=== PATIENT | male | born 1945 | race Caucasian/White ===

== ENCOUNTER → 2017-12-24 | Outpatient (CLI) | payer MEDICARE ==
--- NOTE | 2017-12-25 09:14 | XR ---
EXAMINATION TYPE: XR chest 2V DATE OF EXAM: 12/24/2017 COMPARISON: 04/16/2016 TECHNIQUE: PA and lateral views submitted. HISTORY: Presurgical FINDINGS: The lungs are clear and there is no pneumothorax, pleural effusion, or focal pneumonia. Postsurgica l changes are noted. Pleural-based thickening. Rib deformity on the left remote trauma. No overt fail ure or pneumothorax. Heart size stable. Degenerative change of the spine noted. IMPRESSION: 1. No acute process.
== END | disposition home or self-care (01) ==
LOC: RADXRMAIN 16:06
PROVIDERS: ATTEND Internal Medicine
DX: I10 Essential (primary) hypertension (principal)
CPT/HCPCS: 71046

== ENCOUNTER → 2017-12-25 | Outpatient (CLI) | payer MEDICARE ==
[2017-12-25 11:25] LABS: PSA Annual Screen 0.58 ng/mL (0.00-4.00)
[2017-12-25 18:48] LABS: Hemoglobin A1C 5.2 % (4.0-6.0)
== END | disposition home or self-care (01) ==
LOC: LABWHC1 09:40
PROVIDERS: ATTEND Internal Medicine
DX: E78.5 Hyperlipidemia, unspecified (principal); E55.9 Vitamin D deficiency, unspecified; E03.9 Hypothyroidism, unspecified; E29.1 Testicular hypofunction; E11.9 Type 2 diabetes mellitus without complications; R42 Dizziness and giddiness; R39.14 Feeling of incomplete bladder emptying; Z12.5 Encounter for screening for malignant neoplasm of prostate
CPT/HCPCS: 80061; 84402; 82306; 84403; 83036; G0103; 36415; 80053; 81003; 85027; 85610; 85730; 87070

== ENCOUNTER → 2017-12-25 | Outpatient (CLI) | payer MEDICARE ==
[2017-12-25 10:30] LABS: Appearance,Urine Clear (Clear); Bilirubin,Urine Negative (Negative); Blood,Urine Negative (Negative); Color,Urine Yellow; Glucose,Urine (UA) Negative (Negative); Ketones,Urine Negative (Negative); Leukocyte Esterase,Urine Negative (Negative); Nitrite,Urine Negative (Negative); PH, Urine 7.5 (5.0-8.0); Protein,Urine Negative (Negative); Specific Gravity,Urine 1.011 (1.001-1.035); Urobilinogen,Urine <2.0 mg/dL (<2.0)
[2017-12-25 10:39] LABS: HCT 41.2 % (39.0-53.0); HGB 13.1 gm/dL (13.0-17.5); MCH 28.1 pg (25.0-35.0); MCHC 31.7 g/dL (31.0-37.0); MCV 88.5 fL (80.0-100.0); Mean Platelet Volume 7.8; Platelet Count 186 k/uL (150-450); RBC 4.65 m/uL (4.30-5.90); RDW 13.3 % (11.5-15.5); WBC 7.2 k/uL (3.8-10.6)
[2017-12-25 10:48] LABS: INR 1.1 (<1.2); Partial Thromboplastin Time 24.7 sec (22.0-30.0); Prothrombin Time 10.5 sec (9.0-12.0)
[2017-12-25 10:59] LABS: ALT 94 U/L (21-72); AST 71 U/L (17-59); Alkaline Phosphatase 120 U/L (38-126); Anion Gap 9 mmol/L; Blood Urea Nitrogen 19 mg/dL (9-20); Calcium 9.4 mg/dL (8.4-10.2); Carbon Dioxide 31 mmol/L (22-30); Chloride 106 mmol/L (98-107); Glucose 100 mg/dL (74-99); Potassium 4.4 mmol/L (3.5-5.1); Sodium 146 mmol/L (137-145); Total Bilirubin 0.6 mg/dL (0.2-1.3); Total Protein 7.3 g/dL (6.3-8.2)
== END | disposition home or self-care (01) ==
LOC: LABPAT 09:38
PROVIDERS: ATTEND Orthopaedic Surgery
DX: Z01.812 Encounter for preprocedural laboratory examination (principal); Z01.818 Encounter for other preprocedural examination
CPT/HCPCS: 36415; 80053; 81003; 85027; 85610; 85730; 87070

== ENCOUNTER 2018-01-06 06:16 | Inpatient (IN) | payer MEDICARE ==
[2018-01-01 11:13] VITALS: BMI 24.4
[~2018-01-06 06:16] MED LIST: LACTATED RINGERS 1,000 ML IV SCH; MIDAZOLAM 2 MG/2 ML VIAL IV PRN; MORPHINE SULFATE 4 MG/ML SYRINGE IV PRN; ONDANSETRON 4 MG/2 ML VIAL IVP PRN; TRANEXAMIC ACID 1,000 MG in SODIUM CHLORIDE 0.9% 50 ML IVPB ONE; ceFAZolin IN SWFI 2 GM/20 ML SYRINGE IVP ONE
[2018-01-06] MEDS ORDERED: LIDOCAINE 1% 20 ML VIAL (10MG/ML) FOR IV START INTRADERMA ONE (06:56)
[2018-01-06] MEDS ORDERED: DEXAMETHASONE SOD PHOSPHATE 10 MG/ML 1 ML VIAL IV ONE (06:58)
[2018-01-06] MEDS ORDERED: hydrOXYzine PAMOATE 25 MG CAP PO PRN (10:14)
[2018-01-06] MEDS ORDERED: NA PHOS,M-B/NA PHOS,DI-BA 133 ML ENEMA RECTAL PRN (10:14)
[2018-01-06] MEDS ORDERED: TEMAZEPAM 15 MG CAP PO PRN (10:14)
[2018-01-06] MEDS ORDERED: BISACODYL 10 MG SUPP RECTAL PRN (10:14)
[2018-01-06] MEDS ORDERED: MAGNESIUM HYDROXIDE 2,400 MG/10 ML CUP PO PRN (10:14)
[2018-01-06] MEDS ORDERED: ONDANSETRON 4 MG/2 ML VIAL IVP PRN (10:14)
[2018-01-06] MEDS ORDERED: HYDROcodone/APAP 5-325MG 1 EACH TAB PO PRN (10:14)
[2018-01-06] MEDS ORDERED: NALOXONE 0.4 MG/ML 1 ML VIAL IV PRN (10:14)
[2018-01-06] MEDS ORDERED: MORPHINE SULFATE 4 MG/ML SYRINGE IVP PRN ×2 (10:14)
--- NOTE | 2018-01-06 10:37 | XR ---
EXAMINATION TYPE: XR knee limited RT DATE OF EXAM: 01/06/2018 COMPARISON: NONE TECHNIQUE: Two views submitted HISTORY: Post op FINDINGS: There is a prosthetic knee in near anatomic alignment. There is soft tissue edema and emphysema. IMPRESSION: 1. Postoperative change. Appears in near-anatomic alignment
[2018-01-06] MEDS: LACTATED RINGERS 1,000 ML IV SCH ×2 (11:16→16:44)
[2018-01-06] MEDS: HYDROcodone/APAP 5-325MG 1 EACH TAB PO PRN ×2 (14:17→20:25)
[2018-01-06] MEDS: ceFAZolin IN SWFI 2 GM/20 ML SYRINGE IVP SCH ×2 (16:44→23:31)
[2018-01-06] MEDS ORDERED: WARFARIN 5 MG TAB PO ONE (18:00)
[2018-01-06] MEDS: MORPHINE SULFATE 4 MG/ML SYRINGE IVP PRN ×2 (18:34→23:44)
[2018-01-06] MEDS: LISINOPRIL 20 MG TAB PO SCH (20:26)
[2018-01-06] MEDS: FERROUS SULFATE 325 MG TAB PO SCH (20:26)
[2018-01-06] MEDS: SENNOSIDES-DOCUSATE SODIUM 1 EACH TAB PO SCH (20:26)
--- NOTE | 2018-01-06 23:20 | CONS ---
CONSULTATION DATE OF CONSULTATION: 01/06/2018. REASON FOR CONSULTATION: Medical management, requested by Dr. Tejada. CONSULTATION: This is a pleasant 72-year-old patient of Dr. Freddy Stewart. Has undergone a right total knee arthroplasty. Post procedure, patient's pain is rather well controlled. No nausea or vomiting. No chest pain. Sitting up, comfortable. The patient's chronic stable medical conditions include coronary artery disease, hypertension, hyperlipidemia, arthritis in multiple joints. Patient did tolerate his supper. REVIEW OF SYSTEMS: CONSTITUTIONAL: None. HEENT: None. RESPIRATORY: None. CARDIOVASCULAR: None. GASTROINTESTINAL: None. GENITOURINARY: None. MUSCULOSKELETAL: Arthritic pain in many joints. HEMATOLOGIC: None. LYMPHATICS: None. PSYCHIATRY: None. NEUROLOGIC: None. PAST MEDICAL HISTORY: Coronary artery disease, hypertension, hyperlipidemia, osteoarthritis. The patient's ejection fraction is 50% to 55%. PAST SURGICAL HISTORY: Coronary bypass in 2016, arthroscopy of the right knee, back surgery. SOCIAL HISTORY: Patient smoked less than a pack a day for over 32 years, stopped around 2000. Does medical marijuana. Lives by himself. 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 FAMILY HISTORY: Cancer, type unknown. HOME MEDICATIONS: 1. Metoprolol 25 mg p.o. daily. 2. Mobic 50 mg p.o. daily. 3. Magnesium 500 mg p.o. daily. 4. Zestril 20 mg b.i.d. 5. Lasix 20 mg p.o. daily. 6. Iron 325 p.o. daily. 7. Lipitor 80 mg p.o. daily. 8. Aspirin 325 p.o. daily. ALLERGIES: None. PHYSICAL EXAMINATION: Temperature 98, pulse 58, respirations 18, blood pressure 185/84, repeat blood pressure pending. Pulse ox 98% on room air. GENERAL APPEARANCE: Average built, sitting up, comfortable. EYES: Pupils equal. Conjunctivae normal. HEENT: External appearance of ears and nose normal. Oral cavity normal. NECK: JVD not raised. Mass not palpable. Respiratory effort normal. LUNGS: Clear. CARDIOVASCULAR: 1st and 2nd sounds normal. No edema. ABDOMEN: Soft, nontender. Liver and spleen not palpable. LYMPHATIC: No lymph nodes palpable in the neck or axillae. PSYCHIATRY: Alert, oriented x3. Mood and affect normal. NEUROLOGICAL: Pupils equal. Cranial nerves grossly intact. Power and sensation grossly intact. EXTREMITIES: Dressing over the operative site. INVESTIGATIONS: The patient's blood work from 12/25/2017 shows a hemoglobin of 13.1, potassium 4.4, BUN and creatinine normal. ASSESSMENT: 1. Right total knee arthroplasty. 2. Primary osteoarthritis, multiple joints bilateral. 3. Essential hypertension. 4. Hyperlipidemia. 5. Coronary artery disease with bypass 3 years ago. PLAN: Home medications are resumed. Will put the patient on at least 81 mg because of cardiac history. DVT prophylaxis per Dr. Tejada. Care was discussed with the patient. Questions were answered. Care was discussed the patient. Thank you, Dr. Tejada. MMLISETTEL / YOLANDAN: [id number] /
--- NOTE | 2018-01-06 23:35 | CONS ---
CONSULTATION DATE OF SERVICE: 01/06/2018 REASON FOR CONSULTATION: Medical management requested by Dr. Stewart. CONSULTATION: This is a pleasant 72-year-old patient of Dr. Stewart. The consult was requested by Dr. Tejada. The patient has undergone a MMODL / IJN: [id number] /
[2018-01-07] MEDS: MORPHINE SULFATE 4 MG/ML SYRINGE IVP PRN ×2 (03:38→08:48)
[2018-01-07] MEDS: HYDROcodone/APAP 5-325MG 1 EACH TAB PO PRN (05:39)
[2018-01-07] MEDS: LACTATED RINGERS 1,000 ML IV SCH ×2 (06:18→13:34)
[2018-01-07 07:12] LABS: Basophils % (A) 0 %; Eosinophils % (A) 0 %; HCT 31.3 % (39.0-53.0); HGB 10.2 gm/dL (13.0-17.5); INR 1.6 (<1.2); Lymphocytes % (A) 8 %; MCH 27.9 pg (25.0-35.0); MCHC 32.5 g/dL (31.0-37.0); MCV 85.9 fL (80.0-100.0); Mean Platelet Volume 8.3; Monocytes # (A) 0.7 k/uL (0-1.0); Monocytes % (A) 5 %; Neutrophils # (A) 11.2 k/uL (1.3-7.7); Neutrophils % (A) 85 %; Platelet Count 184 k/uL (150-450); Prothrombin Time 15.1 sec (9.0-12.0); RBC 3.65 m/uL (4.30-5.90); RDW 13.5 % (11.5-15.5); WBC 13.3 k/uL (3.8-10.6)
[2018-01-07] MEDS: ATORVASTATIN 80 MG TAB PO SCH (08:44)
[2018-01-07] MEDS: LISINOPRIL 20 MG TAB PO SCH ×2 (08:44→22:41)
[2018-01-07] MEDS: METOPROLOL TARTRATE 25 MG TAB PO SCH (08:44)
[2018-01-07] MEDS: FUROSEMIDE 20 MG TAB PO SCH (08:44)
--- NOTE | 2018-01-07 08:48 | P.PN ---
Subjective Progress Note Date: 01/07/18 Principal diagnosis: Status post right total knee arthroplasty This is a 72 year-old male post right total knee arthroplasty. This is post-op day 1. The patient was evaluated at the bedside today. The patient denies nausea, vomiting, abdominal pain, shortness of breath, and chest pain this morning. He states his pain is not controlled at this time. The patient has not been up with physical therapy. Objective - Vital Signs Vital signs: Vital Signs Temp 98.5 F 01/07/18 07:00 Pulse 57 L 01/07/18 07:00 Resp 16 01/07/18 07:00 BP 174/83 01/07/18 07:00 Pulse Ox 98 01/07/18 07:00 Intake & Output 01/06/18 01/07/18 01/07/18 18:59 06:59 18:59 Intake Total 1140 1836 240 Output Total 200 1450 Balance 940 386 240 Weight 81.647 kg Intake: IV 900 Intake, IV Titration 1116 Amount Lactated Ringers 1,000 ml 1116 @ 100 mls/hr IV .Q10H LIANG Rx#:[id number] Oral 240 720 240 Output: Urine 150 1450 Estimated Blood Loss 50 Other: Voiding Method Indwelling Catheter Indwelling Catheter - Exam The patient does not appear in acute distress. Alert and orientated x3. Dressing is clean dry and intact. Incision appears fine with no erythema or active drainage. Calf is soft and nontender. Good foot and ankle motion without difficulty. Sensation and circulatory status is intact. - Labs CBC & Chem 7: 01/07/18 06:33 Labs: Abnormal Lab Results - Last 24 Hours (Table) 01/07/18 01/07/18 Range/Units 06:33 06:33 WBC 13.3 H (3.8-10.6) k/uL RBC 3.65 L (4.30-5.90) m/uL Hgb 10.2 L (13.0-17.5) gm/dL Hct 31.3 L (39.0-53.0) % Neutrophils # 11.2 H (1.3-7.7) k/uL PT 15.1 H (9.0-12.0) sec INR 1.6 H (<1.2) Assessment and Plan (1) Primary localized osteoarthritis of right knee Current Visit: Yes Status: Acute Code(s): M17.11 - UNILATERAL PRIMARY OSTEOARTHRITIS, RIGHT KNEE SNOMED Code(s): 088856463 (2) Status post total knee replacement, right Current Visit: Yes Status: Acute Code(s): Z96.651 - PRESENCE OF RIGHT ARTIFICIAL KNEE JOINT SNOMED Code(s): 8275605991133 Plan: 1. Continue pain control 2. Anticoagulation with Coumadin per protocol 3. Start physical therapy, CPM, and ambulation 4. Anticipate discharge home with homecare in the next 2-3 days
--- NOTE | 2018-01-07 11:18 | OP ---
OPERATIVE REPORT DATE OF SERVICE: 01/06/2018 SURGEON: Karan Tejada DO. DAY CARE TEACHER: EARL Donald. PREOPERATIVE DIAGNOSIS: Degenerative joint disease of the right knee. POSTOPERATIVE DIAGNOSIS: Tricompartment degenerative joint disease of the right knee. PROCEDURE PERFORMED: Right total knee replacement arthroplasty utilizing the Rachael Persona press-fit component. ESTIMATED BLOOD LOSS: DESCRIPTION OF PROCEDURE: The patient was taken to the operative suite and placed in position. Spinal anesthesia was performed by the department of anesthesiology. A Betadine prep was carried out over the right knee, mid thigh to mid calf. Sterile drapes applied in the usual manner. A medial parapatellar incision was developed. The medial retinaculum was incised as well as the synovium. The patella was everted and dislocated laterally and the knee was brought in flexion and held in a leg simon. The intramedullary cutting guide and jig were utilized for appropriate cuts in preparation for size 7 femoral component. The appropriate femoral cuts were then developed. A provisionary component size 7 right was impacted into position and the bone component interface was well maintained. The tibial tray was aligned and the wafer cut was then developed. The wafer was removed as well as the medial and lateral meniscus. A size 6 metal back tibial tray was selected. It was marked for position. The appropriate peg holes were drilled. The 12 mm spacer was then inserted into the tray and alignment and stability were well maintained. The patella was shaped with a shelving planer. A size 35 mm was selected and it was marked and drilled. All provisional components were removed. Copious antibiotic solution was utilized in preparing the bone. The Pulsavac antibiotic solution was utilized in preparation for final component. A final size 6 trabecular metal 3-hole peg tray was placed in predrilled hole and impacted. The final size 7 right femoral component was impacted into position. The final patellar component size 35 mm was placed in predrilled peg hole and impacted. The final size 12 mm polyethylene final inserted in tibial tray in locking position. The medial retinaculum was then approximated with # 3 Vicryl suture in horizontal mattress fashion. The Pneumatic tourniquet had been deflated and all superficial bleeding was controlled with electrocautery. The #2 Quill suture was utilized in reenforcing the medial retinaculum in a running fashion. A 2-0 Vicryl suture utilized in subcutaneous closure. A #3-0 Vicryl Quill suture was utilized for subcuticular closure. Dermabond was utilized to seal the wound. Betadine and sterile pressure dressing was applied. Tourniquet had been deflated. The patient was transferred to the recovery room in satisfactory postop condition. GROSS PATHOLOGY: There was evidence of severe tricompartment degenerative joint disease. Flexion deformity approximately 10 degrees. MMODL / IJN: [id number] / [facility] SHOREPierre
[2018-01-07] MEDS: MAGNESIUM OXIDE 400 MG TAB PO SCH (12:07)
[2018-01-07] MEDS: FERROUS SULFATE 325 MG TAB PO SCH (12:07)
[2018-01-07] MEDS: HYDROcodone/APAP 7.5-325MG 1 EACH TAB PO PRN ×3 (12:08→22:41)
[2018-01-07] MEDS ORDERED: WARFARIN 5 MG TAB PO ONE (18:00)
--- NOTE | 2018-01-07 18:56 | PN ---
PROGRESS NOTE DATE OF SERVICE: 01/07/18 PRESENT COMPLAINT: Right knee surgery. INTERVAL HISTORY: Patient is status post right knee surgery. Has been out of bed, tolerated diet. No chest pain or short of breath. No new issues. REVIEW OF SYSTEMS: Done for constitutional, cardiovascular, GI, pulmonary, musculoskeletal, relevant findings as above. CURRENT MEDICATIONS: Reviewed. EXAMINATION: Temperature 98.5, pulse 57, respiratory rate 16, blood pressure 174/83, pulse ox 98% on room air. General appearance: Sitting up on bed, comfortable. Eyes: Pupils are equal. Conjunctivae normal. HEENT external appearance of nose and ears normal. Oral cavity normal. Neck JVD not raised. Mass not palpable. Respiratory effort normal. Lungs are clear. Cardiovascular 1st and second sounds no edema. ABDOMEN: Soft, nontender. Liver and spleen not palpable. Psychiatry alert and oriented times three. Mood and affect is normal. INVESTIGATIONS: White count 13.3, hemoglobin 10.2. ASSESSMENT: 1. Right total knee arthroplasty. 2. Primary osteoarthritis multiple joints bilateral. 3. Essential hypertension. 4. Hyperlipidemia. 5. Coronary artery disease with bypass 3 years ago. 6. Acute blood-loss anemia as expected from surgery. PLAN: Continue current medication and treatment plan. Care was discussed with the patient. MMODL / IJN: [id number] /
[2018-01-07] MEDS: SENNOSIDES-DOCUSATE SODIUM 1 EACH TAB PO SCH (22:52)
[2018-01-08 02:10] VITALS: TEMP 98.5
[2018-01-08] MEDS: LACTATED RINGERS 1,000 ML IV SCH (03:09)
[2018-01-08 07:01] VITALS: BP 193/73; PULSE 68; RESP 12
[2018-01-08] MEDS: FUROSEMIDE 20 MG TAB PO SCH (07:29)
[2018-01-08] MEDS: ATORVASTATIN 80 MG TAB PO SCH (07:29)
[2018-01-08] MEDS: METOPROLOL TARTRATE 25 MG TAB PO SCH (07:29)
[2018-01-08] MEDS: LISINOPRIL 20 MG TAB PO SCH (07:29)
[2018-01-08] MEDS: HYDROcodone/APAP 7.5-325MG 1 EACH TAB PO PRN ×2 (07:33→11:32)
--- NOTE | 2018-01-08 09:02 | P.DS ---
Providers Date of admission: 01/06/18 06:16 Expected date of discharge: 01/08/18 Attending physician: Karan Tejada Consults: 01/06/18 10:14 Consult Physician Routine Consulting Provider: Santosh Castillo Consult Reason/Comments: MEDICAL MANGEMENT Do you want consulting provider notified?: Yes Primary care physician: Freddy Stewart - Discharge Diagnosis(es) (1) Primary localized osteoarthritis of right knee Current Visit: Yes Status: Acute (2) Status post total knee replacement, right Current Visit: Yes Status: Acute Hospital Course: This is a pleasant 72-year-old male last seen in our office with complaints of right knee pain. Patient has known history of degenerative arthritis of the right knee and presented to discuss options. After discussion and consideration , patient elected to proceed with a total knee arthroplasty of the right knee. The patient was seen preoperatively and medically cleared for surgery by Dr. Stewart. The patient was admitted to [facility] and underwent right total knee arthroplasty on 01/06/[address] Tejada. The procedure was performed without complications or sequelae. The patient has done well postoperatively. The patient was seen and evaluated at bedside today and denies any new complaints. Pain is reasonably controlled. Dressing is clean dry and intact. Incision looks fine with no erythema or active drainage. Calf is soft and nontender. The patient has full foot and ankle motion without difficulty. Patient's right lower extremity is neurovascular intact. Patient is orthopedically stable for discharge to home today. Pertinent Studies: Laboratory Tests 01/07/18 01/08/18 06:33 06:08 WBC 13.3 H RBC 3.65 L Hgb 10.2 L Hct 31.3 L Neutrophils # 11.2 H PT 18.0 H INR 2.0 H Patient Condition at Discharge: Stable Plan - Discharge Summary Discharge Rx Participant: No New Discharge Prescriptions: New Aspirin 325 mg PO DAILY #30 tab HYDROcodone/APAP 7.5-325MG [Export 7.5-325] 1 - 2 tab PO Q4-6H PRN #90 tab PRN Reason: Pain Sennosides-Docusate Sodium [Senokot-S] 2 tab PO DAILY #30 tablet Warfarin [Coumadin] 2.5 mg PO DIRECTED #30 tab No Action Meloxicam [Mobic] 15 mg PO DAILY Aspirin EC [Ecotrin] 325 mg PO DAILY #30 tablet.dr Lisinopril [Zestril] 20 mg PO BID Furosemide [Lasix] 20 mg PO DAILY Ferrous Sulfate [Feosol] 325 mg PO DAILY Atorvastatin [Lipitor] 80 mg PO DAILY Metoprolol Tartrate 25 mg PO QAM Magnesium Oxide [Ross] 500 mg PO DAILY Discharge Medication List Meloxicam [Mobic] 15 mg PO DAILY 03/08/16 [History] Aspirin EC [Ecotrin] 325 mg PO DAILY #30 tablet. 04/07/16 [Rx] Atorvastatin [Lipitor] 80 mg PO DAILY 01/01/18 [History] Ferrous Sulfate [Feosol] 325 mg PO DAILY 01/01/18 [History] Furosemide [Lasix] 20 mg PO DAILY 01/01/18 [History] Lisinopril [Zestril] 20 mg PO BID 01/01/18 [History] Magnesium Oxide [Ross] 500 mg PO DAILY 01/01/18 [History] Metoprolol Tartrate 25 mg PO QAM 01/01/18 [History] Aspirin 325 mg PO DAILY #30 tab 01/08/18 [Rx] HYDROcodone/APAP 7.5-325MG [Export 7.5-325] 1 - 2 tab PO Q4-6H PRN #90 tab [Rx] Sennosides-Docusate Sodium [Senokot-S] 2 tab PO DAILY #30 tablet 01/08/18 [Rx] Warfarin [Coumadin] 2.5 mg PO DIRECTED #30 tab 01/08/18 [Rx] Follow up Appointment(s)/Referral(s): Karan Tejada DO [Doctor of Osteopathic Medicine] - 2 Weeks [facility], [NON-STAFF] - Freddy Stewart DO [Primary Care Provider] - 1 Week Ambulatory/Diagnostic Orders: Continuous Passive Motion (CPM) Machine [DME.AMB1] Time Frame: 3 Weeks, Location : Determined By Patient Activity/Diet/Wound Care/Special Instructions: Weightbearing as tolerated with a walker Coumadin 2.5 mg 1 by mouth every other day for 7 days then take Aspirin 325mg daily for 1 month CPM 5-6 hours daily May shower if no drainage from incision Keep incision clean and dry Call OA [phone] with questions or concerns [facility] [place] - [phone] - Please call once home to arrange delivery time. Discharge Disposition: HOME WITH HOME HEALTH SERVICES
[2018-01-08] MEDS: MAGNESIUM OXIDE 400 MG TAB PO SCH (11:17)
[2018-01-08] MEDS: FERROUS SULFATE 325 MG TAB PO SCH (11:17)
== END 2018-01-08 12:45 | disposition home health service (06) | DRG 470 ==
LOC: 2ORMAIN 06:16 → 3SUR 10:08
PROVIDERS: ADMIT Orthopaedic Surgery; ATTEND Orthopaedic Surgery
PROC: 0SRC0JA Replacement of Right Knee Joint with Synthetic Substitute, Uncemented, Open Approach (ICD-10-PCS; principal; 2018-01-06 08:00)
DX: M17.11 Unilateral primary osteoarthritis, right knee (principal); D62 Acute posthemorrhagic anemia; E78.5 Hyperlipidemia, unspecified; I10 Essential (primary) hypertension; I25.10 Atherosclerotic heart disease of native coronary artery without angina pectoris; Z79.899 Other long term (current) drug therapy; Z79.01 Long term (current) use of anticoagulants; Z79.52 Long term (current) use of systemic steroids; Z95.1 Presence of aortocoronary bypass graft; Z82.49 Family history of ischemic heart disease and other diseases of the circulatory system; Z87.891 Personal history of nicotine dependence; Z79.82 Long term (current) use of aspirin
CPT/HCPCS: 85025; 85610; 88300

== ENCOUNTER → 2018-09-11 | Outpatient (CLI) | payer MEDICARE ==
[2018-09-11 08:51] LABS: Basophils % (A) 0 %; Eosinophils # (A) 0.3 k/uL (0-0.7); Eosinophils % (A) 3 %; HCT 40.2 % (39.0-53.0); HGB 12.9 gm/dL (13.0-17.5); Lymphocytes # (A) 1.2 k/uL (1.0-4.8); Lymphocytes % (A) 15 %; MCH 27.7 pg (25.0-35.0); MCHC 32.1 g/dL (31.0-37.0); MCV 86.3 fL (80.0-100.0); Mean Platelet Volume 7.3; Monocytes # (A) 0.4 k/uL (0-1.0); Monocytes % (A) 5 %; Neutrophils # (A) 6.4 k/uL (1.3-7.7); Neutrophils % (A) 76 %; Platelet Count 273 k/uL (150-450); RBC 4.66 m/uL (4.30-5.90); RDW 13.3 % (11.5-15.5); WBC 8.4 k/uL (3.8-10.6)
[2018-09-11 08:59] LABS: ALT 26 U/L (21-72); AST 28 U/L (17-59); Albumin 3.6 g/dL (3.5-5.0); Alkaline Phosphatase 86 U/L (38-126); Anion Gap 10 mmol/L; Blood Urea Nitrogen 18 mg/dL (9-20); Calcium 9.4 mg/dL (8.4-10.2); Carbon Dioxide 27 mmol/L (22-30); Chloride 105 mmol/L (98-107); Glucose 109 mg/dL (74-99); Potassium 4.3 mmol/L (3.5-5.1); Sodium 142 mmol/L (137-145); Total Bilirubin 0.5 mg/dL (0.2-1.3); Total Protein 7.3 g/dL (6.3-8.2)
[2018-09-11 10:05] LABS: C Reactive Protein 19.4 mg/L (<10.0)
--- NOTE | 2018-09-11 10:43 | CT ---
EXAMINATION TYPE: CT chest w con DATE OF EXAM: 09/11/2018 COMPARISON: NONE HISTORY: Cellulitis of chest wall CT DLP: 338.0 mGycm. Automated Exposure Control for Dose Reduction was Utilized. TECHNIQUE: CT scan of the thorax is performed following with IV Contrast, patient injected with 100 mL of Isovue 300. FINDINGS: LUNGS: The lungs are grossly clear, there is no concerning parenchymal mass or nodule identified. T here is no pleural effusion or pneumothorax seen. The tracheobronchial tree is patent. MEDIASTINUM: At the site of sternotomy cerclage there is overlying phlegmonous changes of the skin bui rface, focal skin thickening measuring up to 3 mm, and diastases of the sternal manubrium measuring u p to 1.2 cm. Onvokj-mk-[id number] sternotomy wires appear grossly intact. Post CABG changes are noted. No focal measurable fluid collection is seen to suggest abscess. Retrosternal soft tissue prominence jovanny suring up to 8 mm likely represents postsurgical fibrotic change or phlegmonous change. At the right lateral aspect on image 19 soft tissue prominence abuts the brachiocephalic vein and abuts the vein o n sagittal images without impression No central fluid within this region. There are no greater than 1 cm hilar or mediastinal lymph nodes. No pericardial effusion is seen. There is a conventional thr ee-vessel branch pattern of the aortic arch. OTHER: Minimal multilevel degenerative changes of the spine are present. IMPRESSION: Phlegmonous change both superficial and deep to the cranial aspect of the sternal manubrial figure-of -eight cerclage with overlying skin thickening indicative of the known cellulitis. There is diastases of the sternal manubrium without additional findings of osteomyelitis. No focal drainable fluid wei ection at this time. Retrosternal soft tissue density abuts but does not impress upon the radiocephal ic vein.
[2018-09-11 11:44] LABS: Erythrocyte Sedimentation Rate 49 mm/hr (0-15)
== END | disposition home or self-care (01) ==
LOC: RADCTMAIN 08:15
PROVIDERS: ATTEND Internal Medicine
DX: R93.89 Abnormal findings on diagnostic imaging of other specified body structures (principal); Z01.812 Encounter for preprocedural laboratory examination
CPT/HCPCS: 80053; 85652; 85025; 86140; 71260; 36415; Q9967

== ENCOUNTER → 2019-02-09 | Outpatient (CLI) | payer MEDICARE ==
--- NOTE | 2019-02-09 15:05 | CT ---
EXAMINATION TYPE: CT chest wo con DATE OF EXAM: 02/09/2019 COMPARISON: 09/11/2018 HISTORY: 73-year-old male cellulitis of the chest wall, sternal notch mass TECHNIQUE: Contiguous axial scanning of the chest without IV contrast. Coronal and sagittal reconstru ctions performed. CT DLP: 353.9 mGycm Automated exposure control for dose reduction was used. FINDINGS: Heart normal size without pericardial effusion. Median sternotomy wires are present with post-CABG ch anges. Aorta normal caliber with conventional arch vessel branching anatomy. No thoracic lymphadenopathy by CT size criteria. Median sternotomy wires redemonstrated with stable manubrial dehiscence. There is some improvement in the previous presternal phlegmon with residual mild soft tissue thickening. There is a new low densi ty ovoid structure in the subcutaneous tissues in the region of the sternal notch located just above the superior loop of the cranial most sternotomy wire measuring 2.6 cm. This is located directly belo w the skin surface and corresponds to the palpable site. Some retrosternal phlegmon within the anterior mediastinal fat persists especially tracking along the superior sternotomy wire, for example, refer to axial images 10 through 16. Overall thickening show slight interval decrease but again, persists. Some of the retrosternal phlegmon along the superior sternal body also persists measuring up to 1.2 c m thick, relatively unchanged. Visualized upper abdomen shows a tiny hiatal hernia. Bones: Sternotomy changes described above. Degenerative changes left shoulder and moderate degenerati ve disc disease throughout the thoracic spine. IMPRESSION: 1. REDEMONSTRATED STERNAL MANUBRIAL DEHISCENCE WITH SUSPECTED INFECTED SUPERIOR STERNOTOMY WIRE. MILD PRESTERNAL PHLEGMONOUS THICKENING MAY BE SLIGHTLY IMPROVED BUT THERE IS A NEW CYSTIC LESION MEASURIN G 2.6 CM JUST ABOVE THE SUPERIOR LOOP OF THIS STERNOTOMY WIRE AT THE PATIENT'S PALPABLE SITE. THE EXA CT ETIOLOGY IS UNCLEAR. INFECTIVE FLUID JUST BELOW THE SKIN SURFACE NOT EXCLUDED. 2. ADDITIONAL RETROSTERNAL PHLEGMONOUS THICKENING COURSING ALONG THIS SUPERIOR STERNOTOMY WIRE AND AL SO INFERIORLY ALONG THE UPPERMOST ASPECT OF THE STERNAL BODY IS RELATIVELY UNCHANGED. 3. NO PROGRESSIVE BONY DESTRUCTION.
== END | disposition home or self-care (01) ==
LOC: RADCTMAIN 12:31
PROVIDERS: ATTEND Surgery
DX: L03.313 Cellulitis of chest wall (principal)
CPT/HCPCS: 71250

== ENCOUNTER → 2019-02-19 | Outpatient (CLI) | payer MEDICARE ==
[2019-02-19 11:59] LABS: Basophils % (A) 0 %; Eosinophils # (A) 0.3 k/uL (0-0.7); Eosinophils % (A) 4 %; HCT 42.2 % (39.0-53.0); HGB 13.8 gm/dL (13.0-17.5); Lymphocytes # (A) 1.2 k/uL (1.0-4.8); Lymphocytes % (A) 18 %; MCH 28.4 pg (25.0-35.0); MCHC 32.6 g/dL (31.0-37.0); MCV 87.3 fL (80.0-100.0); Monocytes # (A) 0.4 k/uL (0-1.0); Monocytes % (A) 5 %; Neutrophils # (A) 4.8 k/uL (1.3-7.7); Neutrophils % (A) 72 %; Platelet Count 190 k/uL (150-450); RBC 4.84 m/uL (4.30-5.90); RDW 14.3 % (11.5-15.5); WBC 6.7 k/uL (3.8-10.6)
[2019-02-19 12:03] LABS: Partial Thromboplastin Time 25.5 sec (22.0-30.0); Prothrombin Time 10.6 sec (9.0-12.0)
[2019-02-19 13:18] LABS: Amorphous Sediment,Urine Rare /hpf; Appearance,Urine Cloudy (Clear); Bilirubin,Urine Negative (Negative); Blood,Urine Negative (Negative); Color,Urine Yellow; Glucose,Urine (UA) Negative (Negative); Ketones,Urine Negative (Negative); Leukocyte Esterase,Urine Negative (Negative); Mucus,Urine Many /hpf; Nitrite,Urine Negative (Negative); PH, Urine 7.5 (5.0-8.0); Protein,Urine Trace (Negative); Specific Gravity,Urine 1.025 (1.001-1.035); Urobilinogen,Urine <2.0 mg/dL (<2.0); WBC,Urine 1 /hpf (0-5)
[2019-02-19 17:24] LABS: Magnesium 2.1 mg/dL (1.5-2.4)
== END ==
LOC: LABWHC1 10:42
PROVIDERS: ATTEND Surgery
DX: Z01.812 Encounter for preprocedural laboratory examination (principal)
CPT/HCPCS: 36415; 80051; 81001; 82565; 82947; 83735; 84520; 85025; 85610; 85730; 87086

== ENCOUNTER 2019-02-23 10:30 | Inpatient (IN) | payer MEDICARE ==
[~2019-02-23 10:30] MED LIST changes: +HYDROmorphone 0.5 MG/0.5 ML SYRINGE IVP PRN; -LACTATED RINGERS 1,000 ML IV SCH; -MIDAZOLAM 2 MG/2 ML VIAL IV PRN; -ONDANSETRON 4 MG/2 ML VIAL IVP PRN; -TRANEXAMIC ACID 1,000 MG in SODIUM CHLORIDE 0.9% 50 ML IVPB ONE; -ceFAZolin IN SWFI 2 GM/20 ML SYRINGE IVP ONE
[2019-02-23] MEDS: LACTATED RINGERS 1,000 ML IV SCH (14:00)
[2019-02-23] MEDS ORDERED: LIDOCAINE 1% 20 ML VIAL (10MG/ML) FOR IV START INTRADERMA ONE (14:00)
[2019-02-23] MEDS ORDERED: ONDANSETRON 4 MG/2 ML VIAL IVP ONE (14:32)
[2019-02-23] MEDS ORDERED: MIDAZOLAM 2 MG/2 ML VIAL IVP ONE (14:36)
[2019-02-23] MEDS ORDERED: HYDROmorphone (PF) 1 MG/ML ONE (14:50)
[2019-02-23] MEDS ORDERED: SUCCINYLCHOLINE CHLORIDE 100 MG/5 ML SYR IV ONE (14:50)
[2019-02-23] MEDS ORDERED: PROPOFOL 10 MG/ML 20 ML VIAL IV ONE (14:50)
[2019-02-23] MEDS ORDERED: fentaNYL (PF) 50 MCG/ML 2 ML AMP ONE (14:50)
[2019-02-23] MEDS ORDERED: NEOSTIGMINE 1 MG/ML 10 ML VIAL ONE (14:50)
[2019-02-23] MEDS ORDERED: MIDAZOLAM 2 MG/2 ML VIAL ONE (14:50)
[2019-02-23] MEDS ORDERED: ROCURONIUM BROMIDE 10 MG/ML 10 ML VIAL IV ONE (14:50)
[2019-02-23] MEDS ORDERED: LIDOCAINE 1% INJ 10MG/ML (20 ML MDV) ONE (14:50)
[2019-02-23] MEDS ORDERED: GLYCOPYRROLATE 0.2 MG/ML 2 ML VIAL ONE (14:50)
[2019-02-23] MEDS: ceFAZolin IN SWFI 2 GM/20 ML SYRINGE IVP ONE ×2 (15:00→15:18)
[2019-02-23] MEDS ORDERED: ceFAZolin 2 GM in SODIUM CHLORIDE 0.9% 100 ML IVPB SCH (16:53)
[2019-02-23] MEDS ORDERED: HYDROcodone/APAP 5-325MG 1 EACH TAB PO PRN (16:53)
--- NOTE | 2019-02-23 17:06 | OP ---
OPERATIVE REPORT DATE OF SURGERY: 02/23/2019 SURGEON: Dr. Aubrie Renae. ASSEMBLER EQUIPMENT: Balbir Schaefer, LAZARO PREOPERATIVE DIAGNOSIS: Infected sebaceous cyst and pulled out upper sternal cables. POSTOPERATIVE DIAGNOSIS: Infected sebaceous cyst and pulled out upper sternal cables. PROCEDURE: Incision and drainage of infected sebaceous cyst and removal of the two upper pineal cables with packing of the wound. INDICATION FOR SURGERY: The patient is a 73-year-old gentleman who underwent coronary artery bypass grafting around 3 years ago. Initially he had a small superficial wound infection that eventually healed. He presented 3 years later with a 2 x 2 cm round mobile mass in the suprasternal notch area to the right side. A CT scan performed showed phlegmotic changes and evidence of cables that had pulled off the bone. The bone is stable clinically. However, the manubrium seems to be distracted on CT scan. At this point decision was made to bring the patient in for removal of those two upper cables and to explore the wound and drain the current phlegmon. Risks, benefits and alternatives were discussed with him. He understood and agreed to proceed. DESCRIPTION OF THE PROCEDURE: With the patient in supine position, general endotracheal anesthesia was induced uneventfully. He received 2 grams of cefazolin intravenously. The chest was prepped and draped using ChloraPrep. I started initially by making a small transverse incision and draining what seemed to be an infected sebaceous nodule measuring 2 x 2 cm, which could represent an infected inclusion cyst. Separate to that, we made a 1-1/2 incision over the previous sternotomy and carried it down to the bone. We identified the two cables that were pulled out and we removed them. There was no evidence of infection of the bone or above the bone, as everything was incorporated and fibrotic. I, however, elected to leave the wound open at this time and I made a communication between the suprasternal notch and my wound and the wound was packed with antibiotic-soaked sponge. That wound will be left to close as secondary intention. The patient was extubated in the OR and transferred to the recovery room in stable condition. MMODL / IJN: [id number] / MTDD
[2019-02-23 17:52] VITALS: BMI 23.6
[2019-02-23] MEDS: KETOROLAC 30 MG/ML 1 ML VIAL IVP SCH (18:21)
--- NOTE | 2019-02-23 22:42 | CONS ---
CONSULTATION DATE OF CONSULTATION: 02/23/2019 REASON FOR CONSULTATION: Medical management requested by Dr. Renae. CONSULTATION: This is a pleasant 73-year-old patient of Dr. Stewart. Chronic stable medical conditions include coronary artery disease, hypertension, hyperlipidemia, osteoarthritis. The patient did have a coronary artery bypass in 2015. About 3 months ago patient developed infection in the sternal bone what he describes as two spots that were draining. The patient did require some protracted antibiotics quoted by Dr. Ventura from Infectious Disease that did clear up. The patient then noticed a bulge in the upper part of the sternum and patient taken to the OR. This was noted for about a month. There were no further fever and chills. Dr. Renae went down to the site and cleaned out. It was reported as infected sebaceous cyst. Like stated, patient has had no local pain otherwise, no fever, no chills. Dr. Ventura was consulted from Infectious Disease. The patient has got dressing over the same. REVIEW OF SYSTEMS: CONSTITUTIONAL: None. HEENT: None. RESPIRATORY none. CARDIOVASCULAR: None. GASTROINTESTINAL: None. Genitourinary: NONE. MUSCULOSKELETAL: Arthritic pain in joints. DERMATOLOGICAL as above. LYMPHATICS none. PSYCHIATRY none. NEUROLOGICAL none. PAST MEDICAL HISTORY: Coronary artery disease, hypertension, hyperlipidemia, osteoarthritis. PAST SURGICAL HISTORY: Back surgery, coronary artery bypass 2016, arthroscopy right knee x2, right knee replacement. SOCIAL HISTORY: Smoked less than a pack a day for 32 years, stopped in 2000. Lives alone. 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 FAMILY HISTORY: Of cancer type unknown. HOME MEDICATIONS: 1. Bactrim DS 1 tablet p.o. q.12. 2. Metoprolol 25 mg p.o. daily. 3. Mobic 50 mg p.o. daily. 4. Zestril 20 mg b.i.d. 5. Lasix 20 mg p.o. daily. 6. Iron 325 p.o. daily. 7. Vitamin D2 40803 units p.o. on . 8. Lipitor 20 mg p.o. daily. 9. Aspirin 325 p.o. daily. ALLERGIES: None. PHYSICAL EXAMINATION: VITAL SIGNS: Temperature 97.6. Pulse 46, respiratory 18, blood pressure 115/75. Pulse 98% on room air. GENERAL APPEARANCE: Average build, lying in bed, comfortable. EYES: Pupils equal. Conjunctivae normal. HEENT: External appearance of nose and ears normal. Oral cavity normal. NECK: JVD not raised. Mass not palpable. RESPIRATORY: Effort normal. LUNGS: Lungs slightly decreased breath sounds. CARDIOVASCULAR: First and second sounds normal. No edema. ABDOMEN: Soft, nontender. Liver and spleen not palpable. LYMPHATICS: No lymph nodes palpable in the neck and axilla. PSYCHIATRY: Alert and oriented x3. Mood and affect normal. NEUROLOGICAL: Pupils equal. Cranial nerves grossly intact. Power and sensation grossly intact. MUSCULOSKELETAL: Evidence of osteoarthritis especially in the hands. Chest wall: Patient has a dressing over the sternum. INVESTIGATIONS: No labs noted. ASSESSMENT: 1. Incision and drainage what appears to be infected sebaceous cyst as reported by Dr. Renae and need to make sure there is no underlying infection. The patient recently had a protracted course of antibiotics per Dr. Ventura for a sternal infection. 2. Coronary artery disease, prior history of coronary artery bypass. 3. Essential hypertension. 4. Hyperlipidemia. 5. Primary osteoarthritis. PLAN: Home medications resumed. The patient is on IV Ancef. Dr. Ventura has been consulted. Start Lovenox for DVT prophylaxis. Care was discussed with the patient. Questions were answered. Thank you Dr. Renae. Copy to Dr. Freddy Stewart. MMLISETTEL / LIDIA: [id number] /
[2019-02-24] MEDS: KETOROLAC 30 MG/ML 1 ML VIAL IVP SCH ×5 (00:11→23:39)
[2019-02-24] MEDS: ceFAZolin IN SWFI 2 GM/20 ML SYRINGE IVP SCH ×4 (00:11→23:37)
[2019-02-24] MEDS: LACTATED RINGERS 1,000 ML IV SCH (00:27)
--- NOTE | 2019-02-24 07:48 | XR ---
EXAMINATION TYPE: XR chest 1V portable DATE OF EXAM: 02/24/2019 CLINICAL HISTORY: Post sternal wire removal TECHNIQUE: Single AP portable frontal view of the chest is obtained. COMPARISON: Chest x-ray from December 24, 2017. CT chest February 09, 2019. FINDINGS: There is interval removal of the large superior sternal wire. Inferior sternal wires remai n present. Mediastinal clips from CABG procedure are redemonstrated. There is chronic parenchymal vik nge without pleural effusion or pneumothorax seen bilaterally. Cardiac silhouette size is stable and upper limits of normal. Degenerative change bilateral glenohumeral joints is redemonstrated. IMPRESSION: Interval removal of superior sternal wire. Chronic emphysematous change without acute pul monary process redemonstrated.
[2019-02-24 07:55] LABS: HCT 37.6 % (39.0-53.0); HGB 12.4 gm/dL (13.0-17.5); MCHC 33.1 g/dL (31.0-37.0); MCV 87.5 fL (80.0-100.0); Mean Platelet Volume 8.2; Platelet Count 170 k/uL (150-450); RBC 4.29 m/uL (4.30-5.90)
[2019-02-24 08:05] LABS: Anion Gap 6 mmol/L; Blood Urea Nitrogen 23 mg/dL (9-20); Calcium 8.8 mg/dL (8.4-10.2); Carbon Dioxide 24 mmol/L (22-30); Chloride 110 mmol/L (98-107); Glucose 81 mg/dL (74-99); Potassium 4.3 mmol/L (3.5-5.1); Sodium 140 mmol/L (137-145)
[2019-02-24] MEDS ORDERED: METOPROLOL TARTRATE 25 MG TAB PO SCH (09:00)
[2019-02-24] MEDS: MELOXICAM 7.5 MG TAB PO SCH (09:44)
[2019-02-24] MEDS: ATORVASTATIN 80 MG TAB PO SCH (09:44)
[2019-02-24] MEDS: FUROSEMIDE 20 MG TAB PO SCH (09:44)
[2019-02-24] MEDS: LISINOPRIL 20 MG TAB PO SCH ×2 (09:44→20:14)
[2019-02-24] MEDS: ASPIRIN 325 MG TAB PO SCH (09:44)
[2019-02-24] MEDS: ENOXAPARIN 40 MG/0.4 ML SYRINGE SQ SCH ×2 (09:45→09:50)
[2019-02-24] MEDS: FERROUS SULFATE 325 MG TAB PO SCH (09:45)
--- NOTE | 2019-02-24 09:46 | P.CONS ---
History of Present Illness - Reason for Consult Consult date: 02/24/19 Antibiotic recommendations and wound care management - History of Present Illness This is a 73-year-old male patient well known to ID service with past medical history of three-vessel CABG done in 2016. He had a lesion at the upper end of the chest incision that developed accumulated fluid. He had a CAT scan d one that showed a phlegmon changes and evidence of cables that had been pulled off the bone. He was brought in yesterday under the care of cardiothoracic surgery status post incision and drainage of infected sebaceous cyst and removal of 2 upper pineal cables with packing of the wound. Wound cultures and tissue culture in progress. Patient states that he was on Bactrim provided by his PCP for 5 days prior to admission. Patient states that he is scheduled for discharge home today. He denies having any fever or chills. He states he has been eating adequately. Pain to the chest wall is currently controlled Review of Systems All systems: negative Constitutional: Denies chills, Denies fever Eyes: denies blurred vision, denies pain Ears, nose, mouth and throat: Denies dysphagia, Denies headache, Denies nasal congestion, Denies nasal discharge, Denies sore throat, Denies vertigo Cardiovascular: Denies chest pain, Denies decreased exercise tolerance, Denies dyspnea on exertion, Denies leg edema, Denies lightheadedness, Denies shortness of breath, Denies syncope Respiratory: Denies cough, Denies cough with sputum, Denies dyspnea, Denies excessive sputum, Denies hemoptysis, Denies home oxygen, Denies wheezing Gastrointestinal: Denies abdominal pain, Denies diarrhea, Denies loss of appetite, Denies nausea, Denies vomiting Genitourinary: Denies dysuria Musculoskeletal: Denies frequent falls, Denies gait dysfunction, Denies myalgias Integumentary: Reports wounds, Denies pruritus, Denies rash Neurological: Denies aphasia, Denies change in mentation, Denies gait dysfunction, Denies headaches, Denies numbness, Denies weakness Psychiatric: Denies anxiety, Denies depression Endocrine: Denies fatigue, Denies weight change Past Medical History Past Medical History: Coronary Artery Disease (CAD), Hyperlipidemia, Hypertension, Myocardial Infarction (IA), Osteoarthritis (OA) Additional Past Medical History / Comment(s): lump and swelling at top of chest- on antibiotics, Last Myocardial Infarction Date:: unknown History of Any Multi-Drug Resistant Organisms: None Reported Past Surgical History: Back Surgery, Coronary Bypass/CABG, Heart Catheterization, Joint Replacement, Orthopedic Surgery Additional Past Surgical History / Comment(s): CABG X3 2016, ARTHROSCOPY RT KNEE x2, right knee replacement Past Anesthesia/Blood Transfusion Reactions: Postoperative Nausea & Vomiting (PONV) Additional Past Anesthesia/Blood Transfusion Reaction / Comm: STATES N/V POST OP CABG, ALSO WITH CHEMICAL STRESS TEST Past Psychological History: No Psychological Hx Reported Smoking Status: Former smoker Past Alcohol Use History: Rare Additional Past Alcohol Use History / Comment(s): QUIT SMOKING IN 2000, SMOKED LESS THAN 1 PACK PER WEEK, STARTED SMOKING IN Past Drug Use History: Marijuana Additional Drug Use History / Comment(s): USES DAILY, HAS MEDICAL CARD, INSTRUCTED TO NOT USE 24HRS PRIOR TO PROCEDURE - Past Family History Father Family Medical History: Cancer Mother Family Medical History: No Reported History Medications and Allergies Home Medications Medication Instructions Recorded Confirmed Type Meloxicam [Mobic] 15 mg PO DAILY 03/08/16 02/23/19 History Atorvastatin [Lipitor] 80 mg PO DAILY 01/01/18 02/23/19 History Ferrous Sulfate [Feosol] 325 mg PO DAILY 01/01/18 02/23/19 History Furosemide [Lasix] 20 mg PO DAILY 01/01/18 02/23/19 History Lisinopril [Zestril] 20 mg PO BID 01/01/18 02/23/19 History Metoprolol Tartrate 25 mg PO QAM 01/01/18 02/23/19 History Aspirin 325 mg PO DAILY #30 tab 01/08/18 02/23/19 Rx Ergocalciferol (Vitamin D2) 50,000 unit PO TH 02/22/19 02/23/19 History [Vitamin D2] Sulfamethox-Tmp 800-160Mg [Bactrim 1 tab PO Q12HR 02/22/19 02/23/19 History DS 800-160 mg] Allergies Allergy/AdvReac Type Severity Reaction Status Date / Time No Known Allergies Allergy Verified 02/23/19 18:48 Physical Exam Vitals: Vital Signs Temp Pulse Pulse Pulse Resp BP BP 02/24/19 07:00 98.2 F 50 L 18 02/24/19 00:56 97.4 F L 57 L 15 02/23/19 19:38 97.4 F L 58 L 16 02/23/19 16:45 97.6 F 46 L 18 02/23/19 16:30 48 L 16 02/23/19 16:15 47 L 16 02/23/19 15:59 50 L 16 02/23/19 15:44 97 F L 54 L 16 02/23/19 14:50 53 L 18 137/76 02/23/19 13:46 98.4 F 54 L 52 L 18 162/76 152/79 BP Pulse Ox 02/24/19 07:00 138/54 97 02/24/19 00:56 151/67 95 02/23/19 19:38 168/79 98 02/23/19 16:45 161/75 98 02/23/19 16:30 126/61 98 02/23/19 16:15 160/76 100 02/23/19 15:59 155/76 98 02/23/19 15:44 157/76 98 02/23/19 14:50 97 02/23/19 13:46 95 Intake and Output 02/23/19 02/24/19 02/24/19 22:59 06:59 14:59 Intake Total 550 Output Total 10 Balance 540 Intake: IV 550 Output: Estimated Blood Loss 10 Other: # Voids 1 Gen: This is a 73-year-old male. He is resting in bed and appears to be in no acute distress. Patient is able to move himself in bed and appears to be in no significant pain HEENT: Head is atraumatic, normocephalic. Pupils equal, round. Sclerae is anicteric. Conjunctiva pink. NECK: Supple. No JVD. No lymphadenopathy. No thyromegaly. LUNGS: Clear to auscultation. No wheezes or rhonchi. No intercostal retractions. HEART: Regular rate and rhythm. Systolic murmur. Large dressing in place to the chest wall with the breakthrough bleeding that has been marked by nursing this morning. ABDOMEN: Soft. Bowel sounds are present. No masses. No tenderness. EXTREMITIES: No pedal edema. No calf tenderness. Dorsalis pedis +2 bilaterally. NEUROLOGICAL: Patient is awake, alert and oriented x3. Cranial nerves 2 through 12 are grossly intact. Results CBC & Chem 7: 02/24/19 07:23 02/24/19 07:23 Labs: Abnormal Lab Results - Last 24 Hours (Table) 02/24/19 02/24/19 Range/Units 07:23 07:23 RBC 4.29 L (4.30-5.90) m/uL Hgb 12.4 L (13.0-17.5) gm/dL Hct 37.6 L (39.0-53.0) % Chloride 110 H (98-107) mmol/L BUN 23 H (9-20) mg/dL Microbiology - Last 24 Hours (Table) 02/23/19 15:30 Gram Stain - Preliminary Cyst Tissue Culture - Preliminary 02/23/19 15:30 Gram Stain - Preliminary Cyst Wound Culture - Preliminary 02/23/19 15:30 Anaerobic Culture - Preliminary Tissue - Other 02/23/19 15:30 Anaerobic Culture - Preliminary Cyst Assessment and Plan Plan: This is a 73-year-old male is status post I&D of sternal wound. Cultures are currently in progress. The patient is currently on Kefzol. Previous wound cultures have shown no growth. Antibiotics for home and local wound care will be addressed. Continue supportive care. Further recommendations as patient progresses. The above dictated assessment and findings were discussed with Dr. Ventura. The impression and plan of care have been directed as dictated. Lissa Jean nurse practitioner acting as scribe for Dr. Ventura.
--- NOTE | 2019-02-24 10:42 | P.PN ---
Subjective Progress Note Date: 02/24/19 Principal diagnosis: Infected sebaceous cyst and pulled out upper sternal cables. Previous medical history of coronary artery disease status post coronary artery bypass surgery in 2016, myocardial infarction, hyperlipidemia, hypertension, previous tobacco dependence, and current daily marijuana use. POD #1 incision and drainage of infected sebaceous cyst and removal of the 2 upper perineal cables with packing of the wound. The patient's currently sitting up in bed in no acute distress. Denies pain or shortness of breath. Very anxious and wants to go home today. Understands he must wait to see Dr. Ventura for recommendations regarding antibiotics and local wound treatment, understands that Dr. Ventura will round later today. No new complaints. Objective - Vital Signs Vital signs: Vital Signs Temp 98.2 F 02/24/19 07:00 Pulse 50 L 02/24/19 07:00 Resp 18 02/24/19 07:00 BP 138/54 02/24/19 07:00 Pulse Ox 97 02/24/19 07:00 Intake & Output 02/23/19 02/24/19 02/24/19 18:59 06:59 18:59 Intake Total 950 Output Total 10 Balance 940 Intake: IV 950 Output: Estimated Blood Loss 10 Other: # Voids 1 - Constitutional General appearance: Present: cooperative, no acute distress - Respiratory Details: Lungs sounds clear bilaterally. Respirations even, nonlabored. Currently on room air with oxygen saturation 95%. - Cardiovascular Details: S1, S2 present. Slow but regular rate and rhythm, sinus bradycardia on telemetry. Palpable peripheral pulses bilaterally. No edema present. No calf pain or tenderness noted. - Gastrointestinal Gastrointestinal Comment(s): Abdomen soft, nontender, nondistended. Active bowel sounds 4 quadrants. Tolerating diet. - Genitourinary Genitourinary Comment(s): Continues to void clear, yellow urine. - Integumentary Integumentary Comment(s): Skin is warm and dry with evidence of good perfusion. Anterior chest dressing was saturated, dressing and packing removed, wound looks clean with minimal sanguinous drainage, repacked using sterile procedure, dressing applied. - Neurologic Neurologic: Present: CNII-XII intact - Musculoskeletal Musculoskeletal: Present: gait normal, strength equal bilaterally - Psychiatric Psychiatric: Present: A&O x's 3, appropriate affect, intact judgment & insight - Allied health notes Allied health notes reviewed: nursing - Labs CBC & Chem 7: 02/24/19 07:23 02/24/19 07:23 Labs: Abnormal Lab Results - Last 24 Hours (Table) 02/24/19 02/24/19 Range/Units 07:23 07:23 RBC 4.29 L (4.30-5.90) m/uL Hgb 12.4 L (13.0-17.5) gm/dL Hct 37.6 L (39.0-53.0) % Chloride 110 H (98-107) mmol/L BUN 23 H (9-20) mg/dL Microbiology - Last 24 Hours (Table) 02/23/19 15:30 Gram Stain - Preliminary Cyst Tissue Culture - Preliminary 02/23/19 15:30 Gram Stain - Preliminary Cyst Wound Culture - Preliminary 02/23/19 15:30 Anaerobic Culture - Preliminary Tissue - Other 02/23/19 15:30 Anaerobic Culture - Preliminary Cyst - Imaging and Cardiology Chest x-ray: report reviewed, image reviewed Assessment and Plan Assessment: 1. Infected sebaceous cyst and pulled out upper sternal cables, status post incision and drainage with removal of the 2 upper pineal cables and packing of the wound 2. History of coronary artery disease status post CABG in 2016 3. History of myocardial infarction 4. History of hyperlipidemia 5. History of hypertension 6. Previous tobacco dependence 7. Current daily marijuana use Plan: 1. Local wound care and antibiotic management per Dr. Ventura recommendations. 2. Medical management of other comorbid conditions per Dr. Castillo. 3. Encourage coughing and deep breathing, increased activity, continued smoking cessation. 4. From our standpoint patient may be discharged to home once antibiotics and local wound care has been decided by Dr. Ventura. He should follow-up in the office with Dr. Renae in the next couple of weeks. Time with Patient: Greater than 30
[2019-02-24 15:55] VITALS: RESP 16
[2019-02-24] MEDS: METOPROLOL TARTRATE 12.5 MG TAB PO SCH (20:15)
--- NOTE | 2019-02-24 21:49 | PN ---
PROGRESS NOTE DATE OF SERVICE: February 24, 2019. PRESENTING COMPLAINT: Infected sebaceous cyst. INTERVAL HISTORY: This patient is feeling better today. A dressing change was carried out. Waiting to see Dr. Ventura to decide if further antibiotics are to be needed. Otherwise, tolerating a diet. Lying in bed. REVIEW OF SYSTEMS: Done for constitutional, cardiovascular, GI, pulmonary and relevant findings as above. CURRENT MEDICATIONS: Reviewed that include IV Ancef. EXAMINATION: VITAL SIGNS: Afebrile. Pulse 57, respirations 16, blood pressure 152/77, pulse ox 96% on room air. GENERAL APPEARANCE: Lying in bed, awake. EYES: Pupils equal. Conjunctivae normal. NECK: JVD not raised. Mass not palpable. RESPIRATORY: Effort normal. LUNGS: Slightly decreased breath sounds. CARDIOVASCULAR: 1st and 2nd heart sounds normal. No edema. ABDOMEN: Soft, nontender. Liver and spleen not palpable. PSYCHIATRY: Alert and oriented times three. Mood and affect normal. CHEST: Wall dressing over the sternum. INVESTIGATIONS: White count 16, hemoglobin 12.4, potassium 4.3, ASSESSMENT: 1. Incision and drainage of infected sebaceous cyst over the sternum. Need to rule out underlying infection. 2. Coronary artery disease with prior history of coronary artery bypass. 3. Essential hypertension. 4. Hyperlipidemia. 5. Primary osteoarthritis. PLAN: At this point, continue current medication and treatment plan. Await input from Dr. Ventura who will then determine about discharge antibiotics accordingly. MMODL / IJN: [id number] /
--- NOTE | 2019-02-24 21:55 | HP ---
HISTORY AND PHYSICAL ADDENDUM: DATE OF ADMISSION: 02/23/2019 DATE OF SERVICE: 02/23/19 Please note my consultation dictated yesterday on February 23, 2019 at 10:13 pm, this is not a consultation. This is actually a history and physical. MMODL / IJN: [id number] /
--- NOTE | 2019-02-24 22:24 | P.CON ---
Consult Note - . Consult date: 02/24/19 Assessment/Plan:: This is a 73-year-old male patient well known to ID service with past medical history of three-vessel CABG done in 2016. He had a lesion at the upper end of the chest incision that developed accumulated fluid. He had a CAT scan done that showed a phlegmon changes and evidence of cables that had been pulled off the bone. He was brought in yesterday under the care of cardiothoracic surgery status post incision and drainage of infected sebaceous cyst and removal of 2 upper pineal cables with packing of the wound. Wound cultures and tissue culture in progress. Patient states that he was on Bactrim provided by his PCP for 5 days prior to admission. Patient states that he is scheduled for discharge home today. He denies having any fever or chills. He states he has been eating adequately. Pain to the chest wall is currently controlled please see the consult note is dictated by nurse practitioner Mrs. Lissa Jean. This 73-year-old gentleman is known to the service from his recent office visits. There was evidence of a new mobile cystic-like area superior to his prior sternal wound. Because this abnormality computed tomography scan and repeat a cardiothoracic surgery evaluation were requested. Because of the abnormalities a patient was taken to the operating room and had debridement of the cystic area and removal of 2 floating sternal cables. Phlegmon was debrided. Patient now has a 5 x 2.8 x 1.2 cm postoperative wound. As the patient was somewhat anxious for discharge. Patient is showing a picture of his wound and the fact that he will need home care and at least some antibiotic therapy at the time of discharge. There is a significant amount of drainage and has required several dressing changes. The patient is informed of the importance of dressing changes and wound care. Hopefully this will rapidly taper and bluegray for discharge home the next day or 2. Pain control is not a significant issue at this time. Cardiothoracic surgery does not believe his underlying sternal bone infection. I agree with evaluation, assessment and plan as dictated by nurse practitioner Mrs. Lissa Jean.
[2019-02-25] MEDS: KETOROLAC 30 MG/ML 1 ML VIAL IVP SCH ×3 (06:27→17:13)
[2019-02-25] MEDS ORDERED: ERGOCALCIFEROL 50,000 UNIT CAP PO SCH (09:00)
[2019-02-25] MEDS: ceFAZolin IN SWFI 2 GM/20 ML SYRINGE IVP SCH ×2 (10:25→16:52)
[2019-02-25] MEDS: MELOXICAM 7.5 MG TAB PO SCH (10:26)
[2019-02-25] MEDS: ATORVASTATIN 80 MG TAB PO SCH (10:26)
[2019-02-25] MEDS: LISINOPRIL 20 MG TAB PO SCH (10:28)
[2019-02-25] MEDS: ASPIRIN 325 MG TAB PO SCH (10:29)
[2019-02-25] MEDS: METOPROLOL TARTRATE 12.5 MG TAB PO SCH (10:29)
[2019-02-25] MEDS: FERROUS SULFATE 325 MG TAB PO SCH (10:30)
[2019-02-25] MEDS: ENOXAPARIN 40 MG/0.4 ML SYRINGE SQ SCH (10:31)
[2019-02-25] MEDS: FUROSEMIDE 20 MG TAB PO SCH (10:31)
--- NOTE | 2019-02-25 11:33 | P.PN ---
Subjective Progress Note Date: 02/25/19 Principal diagnosis: Infected sebaceous cyst and pulled out upper sternal cables. Previous medical history of coronary artery disease status post coronary artery bypass surgery in 2016, myocardial infarction, hyperlipidemia, hypertension, previous tobacco dependence, and current daily marijuana use. POD #2 incision and drainage of infected sebaceous cyst and removal of the 2 upper pineal cables with packing of the wound. The patient's currently sitting up in bed in no acute distress. Denies pain or shortness of breath. Wants to go home, wants to shower. Understands he must wait to see Dr. Ventura for recommendations regarding antibiotics and local wound treatment. No new complaints. Objective - Vital Signs Vital signs: Vital Signs Temp 97.7 F 02/25/19 07:00 Pulse 58 L 02/25/19 09:30 Resp 16 02/25/19 07:00 BP 190/93 02/25/19 09:30 Pulse Ox 94 L 02/25/19 09:30 Intake & Output 02/24/19 02/25/19 02/25/19 18:59 06:59 18:59 Intake Total 50 480 200 Balance 50 480 200 Intake: Intake, IV Titration 50 Amount Lactated Ringers 1,000 ml 50 @ 20 mls/hr IV .Q24H LIANG Rx#:[id number] Oral 480 200 Other: # Voids 3 1 - Constitutional General appearance: Present: cooperative, no acute distress - Respiratory Details: Lungs sounds clear bilaterally. Respirations even, nonlabored. Currently on room air with oxygen saturation 98%. - Cardiovascular Details: S1, S2 present. Slow but regular rate and rhythm, sinus bradycardia on telemetry. Palpable peripheral pulses bilaterally. No edema present. No calf pain or tenderness noted. - Gastrointestinal Gastrointestinal Comment(s): Abdomen soft, nontender, nondistended. Active bowel sounds 4 quadrants. Tolerating diet. - Genitourinary Genitourinary Comment(s): Continues to void clear, yellow urine. - Integumentary Integumentary Comment(s): Skin is warm and dry with evidence of good perfusion. Anterior chest dressing dry and intact. - Neurologic Neurologic: Present: CNII-XII intact - Musculoskeletal Musculoskeletal: Present: gait normal, strength equal bilaterally - Psychiatric Psychiatric: Present: A&O x's 3, appropriate affect, intact judgment & insight - Allied health notes Allied health notes reviewed: nursing - Labs CBC & Chem 7: 02/24/19 07:23 02/24/19 07:23 Labs: Microbiology - Last 24 Hours (Table) 02/23/19 15:30 Gram Stain - Preliminary Cyst Wound Culture - Preliminary 02/23/19 15:30 Gram Stain - Preliminary Cyst Tissue Culture - Preliminary Assessment and Plan Assessment: 1. Infected sebaceous cyst and pulled out upper sternal cables, status post incision and drainage with removal of the 2 upper pineal cables and packing of the wound 2. History of coronary artery disease status post CABG in 2016 3. History of myocardial infarction 4. History of hyperlipidemia 5. History of hypertension 6. Previous tobacco dependence 7. Current daily marijuana use Plan: 1. Local wound care and antibiotic management per Dr. Ventura. Recommended wound care is cleanse with saline, pack with silver alginate, cover with ABD and foam dressing. Await recommendation for antibiotics. 2. Medical management of other comorbid conditions per Dr. Castillo. 3. Encourage coughing and deep breathing, increased activity, continued smoking cessation. 4. From our standpoint patient may be discharged to home once antibiotics has been decided by Dr. Ventura. 5. Appointment made for follow-up in the office with Dr. Renae on March 12 @ 10:15. Time with Patient: Greater than 30
[2019-02-25 13:25] VITALS: TEMP 98.1
[2019-02-25] MEDS ORDERED: amLODIPine 5 MG TAB PO STA (17:35)
[2019-02-25 18:57] VITALS: PULSE 56
[2019-02-25 19:03] VITALS: BP 160/70
--- NOTE | 2019-02-25 22:32 | P.PN ---
Subjective Progress Note Date: 02/25/19 This is a 73-year-old male patient well known to ID service with past medical history of three-vessel CABG done in 2016. He had a lesion at the upper end of the chest incision that developed accumulated fluid. He had a CAT scan done that showed a phlegmon changes and evidence of cables that had been pulled off the bone. He was brought in yesterday under the care of cardiothoracic surgery status post incision and drainage of infected sebaceous cyst and removal of 2 upper pineal cables with packing of the wound. Wound cultures and tissue culture in progress. Patient states that he was on Bactrim provided by his PCP for 5 days prior to admission. Patient states that he is scheduled for discharge home today. He denies having any fever or chills. He states he has been eating adequately. Pain to the chest wall is currently controlled 02/25/2019 patient is feeling somewhat better today. His pain is under better control. The case is discussed with cardiothoracic surgery. No evidence of osteomyelitis was found at the time of the debridement. Objective - Vital Signs Vital signs: Vital Signs Temp 98.1 F 02/25/19 17:23 Pulse 56 L 02/25/19 18:57 Resp 16 02/25/19 17:23 BP 160/70 02/25/19 19:02 Pulse Ox 99 02/25/19 17:23 Intake & Output 02/25/19 02/25/19 02/26/19 06:59 18:59 06:59 Intake Total 480 622 Balance 480 622 Intake: Oral 480 622 Other: Voiding Method Toilet # Voids 1 3 - Exam Gen: This is a 73-year-old male. He is resting in bed and appears to be in no acute distress. Patient is able to move himself in bed and appears to be in no significant pain HEENT: Head is atraumatic, normocephalic. Pupils equal, round. Sclerae is anicteric. Conjunctiva pink. NECK: Supple. No JVD. No lymphadenopathy. No thyromegaly. LUNGS: Clear to auscultation. No wheezes or rhonchi. No intercostal retract ions. HEART: Regular rate and rhythm. Systolic murmur. The dressing is removed and the 5 x 2.7 x 1.2 cm surgical wound is noted. There is toxic granulation. The base. There is no purulence. Minimally tender. Drainage is markedly improved. ABDOMEN: Soft. Bowel sounds are present. No masses. No tenderness. EXTREMITIES: No pedal edema. No calf tenderness. Dorsalis pedis +2 bilaterally. NEUROLOGICAL: Patient is awake, alert and oriented x3 - Labs CBC & Chem 7: 02/24/19 07:23 02/24/19 07:23 Labs: Microbiology - Last 24 Hours (Table) 02/23/19 15:30 Gram Stain - Final Cyst Wound Culture - Final 02/23/19 15:30 Gram Stain - Preliminary Cyst Tissue Culture - Preliminary Laboratory Results WBC 6.0 k/uL (3.8-10.6) 02/24/19 07:23 RBC 4.29 m/uL (4.30-5.90) L 02/24/19 07:23 Hgb 12.4 gm/dL (13.0-17.5) L 02/24/19 07:23 Hct 37.6 % (39.0-53.0) L 02/24/19 07:23 MCV 87.5 fL (80.0-100.0) 02/24/19 07:23 MCH 29.0 pg (25.0-35.0) 02/24/19 07:23 MCHC 33.1 g/dL (31.0-37.0) 02/24/19 07:23 RDW 14.0 % (11.5-15.5) 02/24/19 07:23 Plt Count 170 k/uL (150-450) 02/24/19 07:23 Sodium 140 mmol/L (137-145) 02/24/19 07:23 Potassium 4.3 mmol/L (3.5-5.1) 02/24/19 07:23 Chloride 110 mmol/L (98-107) H 02/24/19 07:23 Carbon Dioxide 24 mmol/L (22-30) 02/24/19 07:23 Anion Gap 6 mmol/L 02/24/19 07:23 BUN 23 mg/dL (9-20) H 02/24/19 07:23 Creatinine 0.80 mg/dL (0.66-1.25) 02/24/19 07:23 Est GFR (CKD-EPI)AfAm >90 (>60 ml/min/1.73 sqM) 02/24/19 07:23 Est GFR (CKD-EPI)NonAf >90 (>60 ml/min/1.73 sqM) 02/24/19 07:23 Glucose 81 mg/dL (74-99) 02/24/19 07:23 Calcium 8.8 mg/dL (8.4-10.2) 02/24/19 07:23 Assessment and Plan (1) Status post coronary artery bypass graft Status: Acute Code(s): Z95.1 - PRESENCE OF AORTOCORONARY BYPASS GRAFT SNOMED Code(s): 420173259 (2) Infected sebaceous cyst Narrative/Plan: This 73-year-old gentleman is known to the service from his recent office visits. There was evidence of a new mobile cystic-like area superior to his prior sternal wound. Because this abnormality computed tomography scan and repeat a cardiothoracic surgery evaluation were requested. Because of the abnormalities a patient was taken to the operating room and had debridement of the cystic area and removal of 2 floating sternal cables. Phlegmon was debrided. Patient now has a 5 x 2.8 x 1.2 cm postoperative wound. As the patient was somewhat anxious for discharge. Patient is showing a picture of his wound and the fact that he will need home care and at least some antibiotic therapy at the time of discharge. There is a significant amount of drainage and has required several dressing changes. The patient is informed of the importance of dressing changes and wound care. Hopefully this will rapidly taper and be ready for discharge home the next day or 2. 02/25/2019 patient is feeling considerably better today. Drainage is improved. The surgical wound is packed with silver alginate cover with an ABG pad and then In place with a foam tape dressing. He tolerates this well. Orders are given to home care to change this every Friday. Status: Acute Code(s): L72.3 - SEBACEOUS CYST; L08.9 - LOCAL INFECTION OF THE SKIN AND SUBCUTANEOUS TISSUE, UNSP SNOMED Code(s): 328548783
--- NOTE | 2019-02-26 07:54 | DS ---
DISCHARGE SUMMARY DATE OF ADMISSION: 02/23/2019 DATE OF DISCHARGE: 02/25/2019 FINAL DIAGNOSES: 1. Incision and drainage of the infected sebaceous cyst over the sternum. 2. Coronary artery disease with prior history of coronary artery bypass. 3. Essential hypertension. 4. Hyperlipidemia. 5. Primary osteoarthritis. HOSPITAL COURSE: This is a patient who recently has had infection associated with the sternum, treated with antibiotics with Dr. Ventura, did admit him for infected sebaceous cyst on the upper part of this sternum that was removed. Cultures were done and negative until time of discharge. Antibiotics were coordinated by Dr. Ventura. Dressing changes were carried out. Care was discussed with the patient. On exam, temperature 98.1, pulse 58, respirations 16, blood pressure was 160/70 before discharge. It was running a bit high and medications were adjusted. CONSULTATIONS: Dr. Renae from Cardiothoracic and Dr. Ventura from Infectious Disease. DISCHARGE MEDICATIONS: 1. Mobic 15 mg p.o. daily. 2. Lipitor 80 mg p.o. daily. 3. Iron 325 mg p.o. daily. 4. Lasix 20 mg p.o. daily. 5. Zestril 20 mg p.o. b.i.d. 6. Aspirin 325 mg p.o. daily. 7. Vitamin D2, 50,000 units on . 8. Tylenol 650 mg q.6 p.r.n. 9. Duricef 500 mg q.12; 28 capsules. 10.Metoprolol 12.5 p.o. b.i.d. 11.Norvasc 5 mg p.o. daily. Follow up with Dr. Renae on 03/12/2019. Follow up with Dr. Ventura on 03/11/[address] Freddy Stewart on 03/04/2019. Wound care to continue per Cardiothoracic Surgery. MMODL / IJN: [id number] /
== END 2019-02-25 19:52 | disposition home health service (06) | DRG 909 ==
LOC: 2ORMAIN 13:19 → 4SSUR 16:14
PROVIDERS: ADMIT Hospitalist; ATTEND Hospitalist
PROC: 0PC00ZZ Extirpation of Matter from Sternum, Open Approach (ICD-10-PCS; 2019-02-23)
PROC: 0J960ZZ Drainage of Chest Subcutaneous Tissue and Fascia, Open Approach (ICD-10-PCS; principal; 2019-02-23 15:00)
DX: T85.612A Breakdown (mechanical) of permanent sutures, initial encounter (principal); L72.3 Sebaceous cyst; M19.91 Primary osteoarthritis, unspecified site; E78.5 Hyperlipidemia, unspecified; I10 Essential (primary) hypertension; I25.10 Atherosclerotic heart disease of native coronary artery without angina pectoris; Z60.2 Problems related to living alone; Z96.651 Presence of right artificial knee joint; I25.2 Old myocardial infarction; Z79.82 Long term (current) use of aspirin; Z79.1 Long term (current) use of non-steroidal anti-inflammatories (NSAID); Z79.899 Other long term (current) drug therapy; Z87.891 Personal history of nicotine dependence; Z95.1 Presence of aortocoronary bypass graft; Z98.890 Other specified postprocedural states; Z80.9 Family history of malignant neoplasm, unspecified
CPT/HCPCS: 71045; 80048; 85027; 87070; 87075; 87205

== ENCOUNTER → 2020-11-27 | Outpatient (CLI) | payer MEDICARE ==
[2020-11-27 19:09] LABS: Chol/HDL Ratio 2.91; LDL Cholesterol,Calculated 70.6 mg/dL (0.0-131.0); VLDL Calculation 19.4 mg/dL (5.00-40.00)
== END | disposition home or self-care (01) ==
LOC: LABWHC1 09:54
PROVIDERS: ATTEND Internal Medicine Cardiovascular Disease
DX: E78.2 Mixed hyperlipidemia (principal)
CPT/HCPCS: 36415; 80061; 84450; 84460

== ENCOUNTER 2021-10-10 08:56 | Day surgery (SDC) | payer MEDICARE ==
[2021-10-09 08:19] VITALS: BMI 23.0
[2021-10-10] MEDS ORDERED: SODIUM CHLORIDE 0.9% 500 ML 500 ML IV ONE ×2 (09:41→12:06)
[2021-10-10 09:50] VITALS: TEMP 98.2
[2021-10-10] MEDS: BENZOCAINE SPRAY 1 CAN MUCOUS MEM ONE ×2 (12:07→12:14)
[2021-10-10] MEDS ORDERED: MIDAZOLAM 2 MG/2 ML VIAL IV ONE ×2 (12:13→12:19)
[2021-10-10] MEDS: .fentaNYL (PF) 50 MCG/ML AMP IV ONE ×2 (12:14→12:18)
[2021-10-10 13:35] VITALS: RESP 16
[2021-10-10 13:36] VITALS: BP 140/83; PULSE 53
--- NOTE | 2021-10-10 15:04 | ECHOT ---
TRANSESOPHAGEAL ECHOCARDIOGRAM INDICATION: Mitral regurgitation in a patient with known CAD status post prior bypass. PROCEDURE NOTE: After obtaining informed consent, transesophageal echocardiogram performed in left lateral position using an Omni plane probe. Local and IV sedation were obtained using 3 mg of Versed and 25 mcg of fentanyl. The patient tolerated the procedure well without any obvious immediate complications. Total sedation time was 8 minutes. Color Doppler, 2D M-mode and spectral analysis performed. FINDINGS: 1. Mitral valve appears anatomically normal. There is dilatation of the mitral anulus with moderate central mitral regurgitation. Left atrium appears [id number]-ud-vngmyilxki enlarged. Right atrium and right ventricle seen within normal limits. Left ventricle has normal size and systolic function with ejection fraction 55%. 2. mild tricuspid regurgitation. 3. The patient has no evidence of [id number] shunt by color-flow Doppler or right- to-left shunt by agitated saline contrast study across the interatrial septum. 4. Aortic root appears normal. CONCLUSIONS: 1. Moderate central mitral regurgitation. 2. Normal LV systolic function. MMODL / IJN: [id number] /
== END 2021-10-10 13:55 | disposition home or self-care (01) ==
LOC: CATHCVL 08:56
PROVIDERS: ATTEND Internal Medicine Cardiovascular Disease
DX: I08.1 Rheumatic disorders of both mitral and tricuspid valves (principal); I25.10 Atherosclerotic heart disease of native coronary artery without angina pectoris; Z95.1 Presence of aortocoronary bypass graft; I10 Essential (primary) hypertension; F17.210 Nicotine dependence, cigarettes, uncomplicated; Z79.899 Other long term (current) drug therapy; Z79.82 Long term (current) use of aspirin; E78.2 Mixed hyperlipidemia
CPT/HCPCS: 93312; 93320; 93325; 87635; J2250; J3010

== ENCOUNTER → 2021-10-26 | Outpatient (CLI) | payer MEDICARE ==
[2021-10-26 12:20] LABS: HCT 40.2 % (39.0-53.0); MCH 31.9 pg (25.0-35.0); MCHC 34.9 g/dL (31.0-37.0); MCV 91.2 fL (80.0-100.0); Platelet Count 135 k/uL (150-450); RDW 12.9 % (11.5-15.5); WBC 9.2 k/uL (3.8-10.6)
[2021-10-26 12:30] LABS: African American GFR (CKD) >90 (>60 ml/min/1.73 sqM); Blood Urea Nitrogen 19 mg/dL (9-20); Carbon Dioxide 26 mmol/L (22-30); Non-African American GFR(CKD) >90 (>60 ml/min/1.73 sqM); Potassium 3.9 mmol/L (3.5-5.1); Sodium 142 mmol/L (137-145)
[2021-10-26 12:36] LABS: Anion Gap 10 mmol/L; Chloride 106 mmol/L (98-107)
== END | disposition home or self-care (01) ==
LOC: LABPAT 11:38
PROVIDERS: ATTEND Internal Medicine Cardiovascular Disease
DX: Z01.812 Encounter for preprocedural laboratory examination (principal); U07.1 COVID-19; R06.02 Shortness of breath
CPT/HCPCS: 80051; 82565; 84520; 85027; 36415; U0003; C9803; U0005

== ENCOUNTER 2021-10-30 06:24 | Day surgery (SDC) | payer MEDICARE ==
[~2021-10-30 06:24] MED LIST changes: +ALPRAZolam 0.25 MG TAB PO PRN; +ALPRAZolam 0.5 MG TAB PO PRN; +ASPIRIN 325 MG TAB PO STA; +HEPARIN SODIUM,PORCINE 10,000 UNIT in SODIUM CHLORIDE 0.9% 1,000 ML IRRIGATION PRN; +HEPARIN SODIUM,PORCINE 2,500 UNIT in SODIUM CHLORIDE 0.9% 250 ML IRRIGATION PRN; -HYDROmorphone 0.5 MG/0.5 ML SYRINGE IVP PRN; -MORPHINE SULFATE 4 MG/ML SYRINGE IV PRN; +NITROGLYCERIN SL TABS 0.4 MG TAB SUBLINGUAL PRN; +SODIUM CHLORIDE 0.9% 1,000 ML in EMPTY BAG 1 BAG IV SCH
[2021-10-30] MEDS ORDERED: SODIUM CHLORIDE 0.9% 1,000 ML IV ONE (06:50)
[2021-10-30] MEDS ORDERED: VERAPAMIL 2.5 MG/ML 2 ML AMP ONE (07:17)
[2021-10-30] MEDS ORDERED: LIDOCAINE 1% INJ 10MG/ML (20 ML MDV) ONE (07:17)
[2021-10-30] MEDS: fentaNYL (PF) 50 MCG/ML 5 ML AMP IV ONE ×5 (07:38→08:45)
[2021-10-30] MEDS: MIDAZOLAM 2 MG/2 ML VIAL IV ONE ×2 (07:38→08:13)
[2021-10-30] MEDS ORDERED: LIDOCAINE 1% INJ 10MG/ML (20 ML MDV) SQ ONE (07:39)
[2021-10-30] MEDS ORDERED: IOPAMIDOL-370 125ML BTL INJ ONE (08:07)
[2021-10-30] MEDS ORDERED: HEPARIN SODIUM 1,000 UN/ML (10ML VL) ONE (08:28)
[2021-10-30] MEDS ORDERED: HEPARIN SODIUM 1,000 UN/ML (10ML VL) IV ONE (08:30)
[2021-10-30] MEDS ORDERED: niCARdipine 25 MG/10 ML VIAL ONE (08:41)
[2021-10-30] MEDS ORDERED: CLOPIDOGREL 75 MG TAB ONE (08:49)
[2021-10-30] MEDS ORDERED: HYDROmorphone 1 MG/ML 1 ML SYRINGE IVP ONE (08:53)
[2021-10-30] MEDS ORDERED: CLOPIDOGREL 75 MG TAB PO ONE (08:54)
[2021-10-30] MEDS ORDERED: IOPAMIDOL-370 100ML BTL INJ ONE (08:55)
[2021-10-30] MEDS ORDERED: ZOLPIDEM 5 MG TAB PO PRN (09:06)
[2021-10-30] MEDS ORDERED: ATROPINE SULFATE 0.1 MG/ML 10ML SYRINGE IV PRN (09:06)
[2021-10-30] MEDS ORDERED: MAG HYDROX/AL HYDROX/SIMETH 30 ML CUP PO PRN (09:06)
[2021-10-30] MEDS ORDERED: RX INFO: IV CONTRAST WAS GIVEN 1 EACH MISC MISCELLANE PRN (09:06)
--- NOTE | 2021-10-30 10:11 | PTCA ---
PERCUTANEOUSTRANS CORORONARY ANGIOGRAPHY DATE OF SERVICE: October 30, 2021. PERFORMING PHYSICIAN: Slim Darnell MD. PROCEDURE PERFORMED: Successful stenting of the ostial/proximal SVG to the RCA using 3.5 x 18 mm Xience CELESTINE with excellent angiographic results. INDICATION: This is a 75-year-old gentleman who sees Dr. Ye regularly who was diagnosed recently with shortness of breath and was found to have moderate to severe mitral regurgitation. He underwent a heart catheterization and that revealed severe disease involving the SVG to RCA. In the light of that, PCI was advised. APPROACH: Right common femoral artery. COMPLICATIONS: None. LEVEL OF SEDATION: Moderate, with sedation length of 27 minutes. PROCEDURE DESCRIPTION: Please refer to diagnostic heart catheterization that was performed by Dr. Ye earlier today for details. Anticoagulation was initiated and achieved with heparin with ACT monitoring. I did the change my 6-Malawian 11 cm sheath into 6-Malaw[place] 23 cm sheath over a 035 wire. Subsequently, the graft to the RCA was engaged using JR4 guide. I did wire it using a run-through wire. Direct stenting was performed using 3.5 x 18 mm Xience drug-eluting stent where the stent was positioned under fluoroscopic guidance and deployed under its nominal pressure. The following angiogram showed excellent angiographic results and the procedure was completed without any complication. POSTPROCEDURE MANAGEMENT: 1. Dual anti-platelet therapy. 2. Aggressive cholesterol control. 3. Risk factor modifications. 4. Follow up with the patient. MMODL / IJN: [id number] /
[2021-10-30] MEDS ORDERED: hydrALAZINE HCL 20 MG/ML 1 ML VIAL ONE (11:27)
[2021-10-30] MEDS ORDERED: hydrALAZINE HCL 20 MG/ML 1 ML VIAL IVP STA (11:30)
[2021-10-30] MEDS ORDERED: HYDROmorphone 1 MG/ML 1 ML SYRINGE ONE (12:03)
[2021-10-30] MEDS: SODIUM CHLORIDE 0.9% 1,000 ML IV SCH ×2 (12:45→20:48)
--- NOTE | 2021-10-30 13:53 | CC ---
CARDIAC CATHETERIZATION REPORT INDICATION: This is a 75-year-old gentleman with history of coronary artery disease status post CABG with STOCKTON to LAD, venous graft to RCA, diagonal, ramus intermedius with moderate to severe mitral regurgitation, who presented to [place] with progressively worsening shortness of breath. He recently underwent a transesophageal echo that showed moderate mitral regurgitation without any evidence of mitral valve prolapse or flail. He was advised to undergo cardiac catheterization to rule out significant obstructive CAD and if necessary perform revascularization and consider referral to a tertiary care center for mitral clip if he still remains symptomatic. PROCEDURE NOTE: After obtaining informed consent, left heart catheterization, coronary angiogram and selective injection of the bypass grafts was performed via the right femoral artery. The left coronary artery was engaged using size 4 Yumiko catheter. Right coronary artery was engaged using a pamela catheter. The venous grafts were engaged using a pamela catheter. The STOCKTON was engaged using the STOCKTON catheter and have the inspection machine tender obtained these images. The patient received moderate conscious sedation. Total sedation time was 30 minutes. He tolerated the procedure well. FINDINGS: Central aortic pressure is 170/70 mm. LEFT VENTRICULOGRAM: Not performed. ANGIOGRAPHIC DATA: 1. LEFT MAIN CORONARY ARTERY: Left main coronary artery is a short vessel that divides into left anterior descending coronary artery and circumflex coronary artery. 2. LEFT ANTERIOR DESCENDING CORONARY ARTERY: LAD appears totally occluded in its proximal portion. 3. CIRCUMFLEX CORONARY ARTERY: Circumflex coronary artery shows a moderate area of stenosis in its mid portion. We used a size 3.5 left Yumiko catheter to engage the LAD more selectively. 4. RIGHT CORONARY ARTERY : Right coronary artery appears subtotally occluded proximally, distally bifurcates into PDA and PLV. The PDA has a long segment of narrowing that is 80-90 percent stenosed. SELECTIVE INJECTION OF THE BYPASS GRAFTS: 1. STOCKTON to LAD appears patent. Proximal and distal anastomotic sites are free of significant disease. The resighini LAD is free of disease. 2. Venous graft to diagonal appears totally occluded. 3. Venous grafts to ramus intermedius appears patent. It is a large venous graft that supplies a small caliber and diffusely diseased vessel. Venous graft to the RCA is patent. There is a 70-80 percent stenosis proximally and distally. The PDA has a long segment of stenosis. CONCLUSIONS: 1. [place] 3 vessel coronary artery disease. 2. Patent STOCKTON to LAD. 3. Occluded venous graft to diagonal. 4. Patent venous graft to ramus intermedius. 5. Patent venous graft to the RCA with tight stenosis proximally in the venous graft and in the resighini PDA. PLAN: Patient will undergo revascularization of the right coronary territory with angioplasty of the venous graft and hopefully the resighini PDA. If in spite of this he has symptoms, I will refer him to [facility] for mitral clip. MMODL / IJN: [id number] /
[2021-10-30] MEDS: lisinopriL 20 MG TAB PO SCH (20:48)
[2021-10-31 07:42] VITALS: BP 169/82; PULSE 70; RESP 20; TEMP 98
[2021-10-31] MEDS: lisinopriL 20 MG TAB PO SCH (07:49)
[2021-10-31 08:08] LABS: African American GFR (CKD) >90 (>60 ml/min/1.73 sqM); Anion Gap 5 mmol/L; Blood Urea Nitrogen 23 mg/dL (9-20); Carbon Dioxide 26 mmol/L (22-30); Chloride 109 mmol/L (98-107); Glucose 101 mg/dL (74-99); Non-African American GFR(CKD) 88 (>60 ml/min/1.73 sqM); Potassium 3.5 mmol/L (3.5-5.1); Sodium 140 mmol/L (137-145)
[2021-10-31 08:27] LABS: Basophils % (A) 0 %; Eosinophils # (A) 0.2 k/uL (0-0.7); Eosinophils % (A) 2 %; HGB 12.9 gm/dL (13.0-17.5); Lymphocytes # (A) 1.1 k/uL (1.0-4.8); Lymphocytes % (A) 13 %; MCH 29.6 pg (25.0-35.0); MCV 89.6 fL (80.0-100.0); Mean Platelet Volume 8.8; Monocytes # (A) 0.5 k/uL (0-1.0); Monocytes % (A) 6 %; Neutrophils # (A) 7.1 k/uL (1.3-7.7); Neutrophils % (A) 78 %; Platelet Count 153 k/uL (150-450); RBC 4.36 m/uL (4.30-5.90); RDW 12.9 % (11.5-15.5); WBC 9.1 k/uL (3.8-10.6)
[2021-10-31] MEDS ORDERED: amLODIPine 5 MG TAB PO SCH (09:00)
[2021-10-31] MEDS ORDERED: ATORVASTATIN 80 MG TAB PO SCH (09:00)
[2021-10-31] MEDS ORDERED: ASPIRIN 325 MG TAB PO SCH (09:00)
[2021-10-31] MEDS ORDERED: CLOPIDOGREL 75 MG TAB PO SCH (09:00)
[2021-10-31] MEDS ORDERED: MELOXICAM 7.5 MG TAB PO SCH (09:00)
--- NOTE | 2021-10-31 11:15 | P.DS ---
Providers Attending physician: Reji Ye Consults: 10/30/21 09:07 Consult Physician Routine Consulting Provider: [facility] Consult Reason/Comments: Post Interventional patient Do you want consulting provider notified?: Already Contacted Primary care physician: Freddy Stewart [facility] Course: INTERVAL HISTORY: The patient is a 75-year-old male past medical history of coronary artery disease status post CABG in 2016, mitral regurgitation, hypertension, former nicotine dependence, admitted to the hospital by Dr. Ye for cardiac catheterization. He underwent PCI of the ostial/proximal SVG to the RCA by Dr. Darnell on 10/30/2021. Patient seen and examined at bedside, no acute distress. He denies any chest pain or shortness of breath. Right groin site, clean dry, with some bruising noted. 2+ peripheral pulses. He's currently maintained on aspirin 325 mg daily, atorvastatin 80 mg daily, Plavix 75 mg daily, lisinopril 20 mg twice a day, meloxicam 15 mg daily. Spoke to patient about increase bleeding with meloxicam with aspirin and plavix. PHYSICAL EXAMINATION: Blood pressure 126/68, heart rate 70, afebrile, oxygen saturation is greater than 92% on room air HEART: S1, S2 normal. LUNGS: Clear to auscultation. NECK: Supple. ABDOMEN: Soft. EXTREMITIES: 2+ peripheral pulses. LAB DATA: WBC 9.1, hemoglobin 12.9, platelets 153, sodium 140, potassium 3.5, BUN 23, serum creatinine 0.8, Covid 19 PCR negative FINAL IMPRESSION: 1. Coronary artery disease s/p PCI to ostial/proximal SVG to the RCA on 10/30/2021 and History of prior CABG in 2015 2. History of hypertension 3. Mitral regurgitation 4. Former nicotine dependence PLAN: Patient may be able to be discharged home today. We will make him a follow-up appointment with Dr. Ye outpatient he has a scheduled appointment on 11/08/21. Plan - Discharge Summary Discharge Rx Participant: Yes New Discharge Prescriptions: New Nitroglycerin Sl Tabs [Nitrostat] 0.4 mg SUBLINGUAL Q5M PRN #25 tab PRN Reason: Chest Pain Clopidogrel [Plavix] 75 mg PO DAILY 30 Days #30 tab Continue Meloxicam [Mobic] 15 mg PO DAILY lisinopriL [Zestril] 20 mg PO BID Atorvastatin [Lipitor] 80 mg PO DAILY Aspirin 325 mg PO DAILY #30 tab amLODIPine [Norvasc] 5 mg PO DAILY #30 tab Discharge Medication List Meloxicam [Mobic] 15 mg PO DAILY 03/08/16 [History] Atorvastatin [Lipitor] 80 mg PO DAILY 01/01/18 [History] lisinopriL [Zestril] 20 mg PO BID 01/01/18 [History] Aspirin 325 mg PO DAILY #30 tab 01/08/18 [Rx] amLODIPine [Norvasc] 5 mg PO DAILY #30 tab 02/25/19 [Rx] Clopidogrel [Plavix] 75 mg PO DAILY 30 Days #30 tab 10/31/21 [Rx] Nitroglycerin Sl Tabs [Nitrostat] 0.4 mg SUBLINGUAL Q5M PRN #25 tab 10/31/21 [Rx] Follow up Appointment(s)/Referral(s): Reji Ye MD [STAFF PHYSICIAN] - 11/08/21 2:15 pm Patient Instructions/Handouts: *Surgery [facility] - After Heart Catheterization - Marker Shipments Instructions, Left Heart Catheterization (DC), Procedural Sedation (ED)
[2021-10-31 11:22] VITALS: BMI 24.2
== END 2021-10-31 11:41 | disposition home or self-care (01) ==
LOC: CATHCVL 06:24 → 3SCARD 12:10 → CATHCVL 10-31 11:41
PROVIDERS: ATTEND Internal Medicine Cardiovascular Disease
DX: I25.10 Atherosclerotic heart disease of native coronary artery without angina pectoris (principal); Z20.822 Contact with and (suspected) exposure to COVID-19; Z95.1 Presence of aortocoronary bypass graft
CPT/HCPCS: 93452; 93455; 80048; 85025; 87635; C9604; C1887; C1769 ×5; C1894 ×2; C1874; J2250; J0360; J2001; J3010; J1644; J1170; Q9967 ×2

== ENCOUNTER → 2024-05-03 | Outpatient (CLI) | payer MEDICARE ==
[2024-05-03 17:42] LABS: BUN/Creat Ratio 24.56 Ratio (12.00-20.00); Blood Urea Nitrogen 22.1 mg/dL (9.0-27.0); Calcium 9.3 mg/dL (8.7-10.3); Carbon Dioxide 22.1 mmol/L (21.6-31.8); Chloride 110 mmol/L (96-109); Glucose 113 mg/dL (70-110); Potassium 3.6 mmol/L (3.5-5.5); Sodium 146 mmol/L (135-145)
[2024-05-03 22:48] LABS: NT-Pro-B-Type Natriuretic Pept 259 pg/mL (0-450)
== END | disposition home or self-care (01) ==
LOC: LABWHC1 09:17
PROVIDERS: ATTEND Internal Medicine Cardiovascular Disease
DX: I50.32 Chronic diastolic (congestive) heart failure (principal)
CPT/HCPCS: 36415; 80048; 83880

== ENCOUNTER → 2025-02-07 | Outpatient (CLI) | payer MEDICARE ==
[2025-02-07 15:30] LABS: ALT 17 U/L (10-49); AST 22 U/L (14-35); BUN/Creat Ratio 21.14 Ratio (12.00-20.00); Blood Urea Nitrogen 14.8 mg/dL (9.0-27.0); Calcium 9.5 mg/dL (8.7-10.3); Chloride 109 mmol/L (96-109); Chol/HDL Ratio 3.26 Ratio; Glucose 93 mg/dL (70-110); LDL Cholesterol,Calculated 89.3 mg/dL (0.0-131.0); NT-Pro-B-Type Natriuretic Pept 356 pg/mL (0-450); Potassium 4.1 mmol/L (3.5-5.5); Sodium 144 mmol/L (135-145); VLDL Calculation 18.08 mg/dL (5.00-40.00)
== END | disposition home or self-care (01) ==
LOC: LABWHC1 08:53
PROVIDERS: ATTEND Internal Medicine Cardiovascular Disease
DX: Z12.5 Encounter for screening for malignant neoplasm of prostate (principal); E78.2 Mixed hyperlipidemia; I10 Essential (primary) hypertension; E78.5 Hyperlipidemia, unspecified; M17.9 Osteoarthritis of knee, unspecified; M19.90 Unspecified osteoarthritis, unspecified site; E55.9 Vitamin D deficiency, unspecified
CPT/HCPCS: 36415; 80048; 80061; 83880; 84450; 84460